=== PATIENT | male | born 1940 | race Caucasian/White ===

== ENCOUNTER 2016-08-09 13:15 | Emergency (ER) | payer MEDICARE ==
[2016-08-09 13:47] LABS: Bilirubin Negative (Negative); Blood, Urine Negative (Negative); Glucose, Urine (Dipstick) Negative (Negative); Ketone, Urine 15 mg/dL (Negative); Nitrite Positive (Negative); Protein, Urine (Dipstick) Negative (Neg-Trace); RBC/HPF 0-3 HPF (0-3)
[2016-08-09 13:48] LABS: Bacteria/HPF Rare-Few HPF (None Seen); Squamous Epithelial None Seen HPF (0-3)
[2016-08-09] MEDS ORDERED: Lidocaine 2% Jelly 5 ML TUBE ONE (13:57)
--- NOTE | 2016-08-09 14:28 | ERRECORD ---
[facility] EMERGENCY RECORD HPI URINARY RETENTION (13:30 WMEI) CHIEF COMPLAINT: Patient presents for evaluation of acute urinary retention. HISTORIAN: History provided by patient, difficulty just occ dribbling for 2 days. LOCATION: Symptoms are localized, most severe in the suprapubic region. TIME COURSE: Gradual onset of symptoms, 2, days priror to arrival, Symptoms are worsening. ASSOCIATED WITH: Associated with chills, No associated fever, No associated flank pain, No associated history of benign prostatic hyperplasia, No associated nausea, Associated with urinary tract infection signs or symptoms, dysuria. EXACERBATED BY: Patient's condition exacerbated by nothing. RELIEVED BY: Patient's condition relieved by nothing. ROS (13:36 WMEI) CONSTITUTIONAL: Historian denies fatigue, denies fever. EYES: Historian denies eye pain, denies eye discharge. ENT: Historian denies otalgia, reports rhinorrhea, denies sore throat. CARDIOVASCULAR: Historian denies chest pain, no radiation. RESPIRATORY: Historian denies cough, denies shortness of breath. GI: Historian reports abdominal pain, denies nausea, denies vomiting. suprapubic. GENITOURINARY MALE: Historian reports dysuria, reports urinary retention. MUSCULOSKELETAL: Historian denies joint redness, denies joint stiffness. SKIN: Historian denies skin changes, denies skin lesions. NEUROLOGIC: Historian denies dizziness, denies mental status changes. PSYCHIATRIC: Historian denies anxiety, denies depression. PAST MEDICAL HISTORY (13:23 CTUR) MEDICAL HISTORY: Notes: HTN, diabetes. MALE SURGICAL HISTORY: Patient has no surgical history. PSYCHIATRIC HISTORY: No previous psychiatric history, no previous emergency department psychiatric evaluations, Notes: denies. SOCIAL HISTORY: Patient drinks socially, rarely, Patient denies drug use, Patient has no smoking history. KNOWN ALLERGIES No Known Allergies CURRENT MEDICATIONS diltiazem HCl: CAPSULE, EXTENDED RELEASE : Strength - 420 mg : ORAL Patient Dose: 420 mg Oral once a day. (13:25 CTUR) losartan-hydrochlorothiazide: &a-1R&a+25V*p+0X*l6576W*c202B*c15G*c2P*p-0X&a-25V&a+1R Name: Gagandeep Catalan : 1940 M76 MedRec: [id number] AcctNum: [id number] Prepared: Merari Aug 09, 2016 14:51 by Interface Page 1 of 3 pMD [facility] EMERGENCY RECORD TABLET : Strength - 100 mg-25 mg : ORAL Patient Dose: 100-25 mg Oral once a day. (13:25 CTUR) meTOPROLOL succinate: TABLET, EXTENDED RELEASE 24 HR : Strength - 25 mg : ORAL Patient Dose: 25 mg Oral once a day. (13:26 CTUR) metFORMIN: TABLET : Strength - 850 mg : ORAL Patient Dose: 850 mg Oral once a day. (13:26 CTUR) omeprazole: TABLET, DELAYED RELEASE (ENTERIC COATED) : Strength - 20 mg : ORAL Patient Dose: 20 mg Oral once a day. (13:26 CTUR) potassium chloride: TABLET, EXTENDED RELEASE : Strength - 10 mEq : ORAL Patient Dose: 1 tab(s) Oral once a day. (13:27 CTUR) simvastatin: TABLET : Strength - 20 mg : ORAL Patient Dose: 20 mg Oral once a day. (13:28 CTUR) CoQ-10: CAPSULE : Strength - 100 mg : ORAL Patient Dose: 50 mg Oral once a day. (13:28 CTUR) VITAL SIGNS VITAL SIGNS: BP: 183/96, Pulse: 77, Resp: 18, Temp: 99.3 (Oral), Pain: 3, O2 sat: 94 on Room Air, Time: 08/09/2016 13:19. (13:19 CTUR) BP: 144/78, Pulse: 76, Resp: 16, Temp: 99.0 (Oral), Pain: 2, O2 sat: 94 on Room Air, Time: 08/09/2016 14:18. (14:18 CTUR) PHYSICAL EXAM (13:38 WMEI) CONSTITUTIONAL: Vital signs reviewed, Patient appears non toxic, Patient alert and oriented to person, place and time. HEAD: Head exam included findings of head atraumatic, normocephalic. EYES: Extraocular muscles intact, Conjunctiva normal, Sclera normal. ENT: Ear exam normal, Nose exam normal, Pharynx exam normal. NECK: Neck exam included findings of normal range of motion, Trachea midline. RESPIRATORY CHEST: Breath sounds clear, Chest exam included findings of chest movement symmetrical. CARDIOVASCULAR: Cardiovascular exam included findings of heart rate regular rate and rhythm, Heart sounds normal. ABDOMEN MALE: Abdominal exam included findings of abdomen nontender, no distension, no mass, non tender after herr inserted. GENITOURINARY MALE: Genitourinary exam included findings of penis normal. UPPER EXTREMITY: Upper extremity exam included findings of inspection normal, Range of motion normal, Motor strength normal. LOWER EXTREMITY: Lower extremity exam included findings of inspection normal, Range of motion normal, Motor strength normal, &a-1R&a+25V*p+0X*b6222C*c202B*c15G*c2P*p-0X&a-25V&a+1R Name: Gagandeep Catalan : 1940 M76 MedRec: [id number] AcctNum: [id number] Prepared: Merari Aug 09, 2016 14:51 by Interface Page 2 of 3 pMD [facility] EMERGENCY RECORD Teresa's positive. NEURO: Cori coma scale 15, Neuro exam findings include patient oriented to person, place and time, Speech normal, Gait normal. SKIN: Skin exam included findings of skin warm, dry, and normal in color. LYMPHATIC: Lymphatic exam normal. PSYCHIATRIC: Psychiatric exam included findings of patient oriented to person place and time, Normal affect, Judgment normal, Insight normal. PROBLEM LIST No recorded problems DIAGNOSIS (13:53 WMEI) FINAL: PRIMARY: urinary retention, ADDITIONAL: UTI. PRESCRIPTION (13:52 WMEI) Cipro tablet: TABLET : 500 mg : ORAL : Quantity: 1 Unit: tab(s) Route: ORAL Schedule: 2 times a day Dispense: 14 Unit: tab(s) May substitute. Refills: No Refills . NOTES: No refills. DISPOSITION PATIENT: Disposition Type: Discharge, Disposition: *Discharge Home. (13:53 WMEI) Patient left the department. (14:20 CTUR) Jackson: CTUR=BRAD Otto Christin WMEI=DO Orr William &a-1R&a+25V*p+0X*x0795F*c202B*c15G*c2P*p-0X&a-25V&a+1R Name: Gagandeep Catalan : 1940 M76 MedRec: [id number] AcctNum: [id number] Prepared: Merari Aug 09, 2016 14:51 by Interface Page 3 of 3 pMD MTDD
--- NOTE | 2016-08-09 14:34 | PICIS ---
[facility] EMERGENCY RECORD TRIAGE (WedAug 09, 2016 13:19 CTUR) TRIAGE NOTES: Pt reports having trouble urinating with the last time having regularly urinated to be on Wednesday. Reports burning and full sensation. ([place] Aug 09, 2016 13:19 CTUR) PATIENT: NAME: Gagandeep Catalan, AGE: 76, GENDER: male, : [facility] 1940, TIME OF GREET: WedAug 09, 2016 13:16, PREFERRED LANGUAGE: Albanian, ETHNICITY: Not or , ECODE BILLING MAP: [facility], SSN: [id number], Zip Code: [address], KG WEIGHT: 89.81, PHONE: , , , PERSON ID: [id number], PAYMENT: [place] [employer], PCP: MD Urbina Kyle. ([place] Aug 09, 2016 13:19 CTUR) COMPLAINT: Unable to Urinate. ([place] Aug 09, 2016 13:19 CTUR) ADMISSION: URGENCY: 3 Urgent, ADMISSION SOURCE: Home, TRANSPORT: CAR, BED: TRIAGE. ([place] Aug 09, 2016 13:19 CTUR) SIRS SCORING: Heart Rate 55-109 (0), Temp range 96.8-101.1 (0), respiratory rate 12-24 (0), Mental Status altered: no (0). (13:23 CTUR) TRIAGE SCREENING: Patient denies suicidal ideation, Patient denies presence of domestic violence. (13:23 CTUR) PROVIDERS: TRIAGE NURSE: Diandra Otto RN. ([place] Aug 09, 2016 13:19 CTUR) VITAL SIGNS: BP 183/96, Pulse 77, Resp 18, Temp 99.3, (Oral), Pain 3, O2 Sat 94, on Room Air, Time 08/09/2016 13:19. (13:19 CTUR) KNOWN ALLERGIES No Known Allergies CURRENT MEDICATIONS diltiazem HCl: CAPSULE, EXTENDED RELEASE : Strength - 420 mg : ORAL Patient Dose: 420 mg Oral once a day. (13:25 CTUR) losartan-hydrochlorothiazide: TABLET : Strength - 100 mg-25 mg : ORAL Patient Dose: 100-25 mg Oral once a day. (13:25 CTUR) meTOPROLOL succinate: TABLET, EXTENDED RELEASE 24 HR : Strength - 25 mg : ORAL Patient Dose: 25 mg Oral once a day. (13:26 CTUR) metFORMIN: TABLET : Strength - 850 mg : ORAL Patient Dose: 850 mg Oral once a day. (13:26 CTUR) omeprazole: TABLET, DELAYED RELEASE (ENTERIC COATED) : Strength - 20 mg : ORAL Patient Dose: 20 mg Oral once a day. (13:26 CTUR) potassium chloride: TABLET, EXTENDED RELEASE : Strength - 10 mEq : ORAL Patient Dose: 1 tab(s) Oral once a day. (13:27 CTUR) simvastatin: TABLET : Strength - 20 mg : ORAL Patient Dose: 20 mg Oral once a day. (13:28 CTUR) CoQ-10: &a-1R&a+25V*p+0X*x5026O*c202B*c15G*c2P*p-0X&a-25V&a+1R Name: Gagandeep Catalan : 1940 M76 MedRec: [id number] AcctNum: [id number] Prepared: Merari Aug 09, 2016 14:57 by Interface Page 1 of 5 pMD [facility] EMERGENCY RECORD CAPSULE : Strength - 100 mg : ORAL Patient Dose: 50 mg Oral once a day. (13:28 CTUR) VITAL SIGNS VITAL SIGNS: BP: 183/96, Pulse: 77, Resp: 18, Temp: 99.3 (Oral), Pain: 3, O2 sat: 94 on Room Air, Time: 08/09/2016 13:19. (13:19 CTUR) BP: 144/78, Pulse: 76, Resp: 16, Temp: 99.0 (Oral), Pain: 2, O2 sat: 94 on Room Air, Time: 08/09/2016 14:18. (14:18 CTUR) NURSING ASSESSMENT: GENITOURINARY (13:25 LGIB) CONSTITUTIONAL: Complex assessment performed, Patient arrives ambulatory, Gait steady, History obtained from patient, Patient appears, uncomfortable, Patient cooperative, Patient alert, Oriented to person, place and time, Skin warm, Skin dry, Skin normal in color, Mucous membranes pink, Mucous membranes moist, Patient is well-groomed, UNABLE TO URINATE NORMALLY SINCE WEDNESDAY. STATES THAT HE CAN ONLY GET A "TRICKLE" OUT. PAIN MALE: Onset of pain 08/07/2016, on a scale 0-10 patient rates pain as 3, Nothing has been tried to alleviate the pain. GENITOURINARY MALE: Male genitourinary assessment findings include external genitalia normal, Scrotum normal, Testicles normal, Circumcised, Associated with urinary complaints described as, retention, urgency. ABDOMEN: Abdomen assessment findings include abdomen symmetrical, Abdomen soft, Bowel sound normal, no associated nausea, no associated vomiting, no associated diarrhea. SAFETY: Side rails up, Cart/Stretcher in lowest position, Call light within reach, Hospital ID band on. NURSING PROCEDURE: DISCHARGE NOTE (14:19 CTUR) DISCHARGE: Patient discharged to home, ambulating without assistance, driving self, unaccompanied, Summary of Care printed/ provided, Transition record given to patient, Discharge instructions given to patient, Simple or moderate discharge teaching performed, by BRAD Butler and BRAD Jim, Prescriptions given and instructions on side effects given, Above person(s) verbalized understanding of discharge instructions and follow-up care, Patient treated and evaluated by physician. BELONGINGS: Belongings and valuables with patient upon arrival to the Emergency Department include:, Belongings and valuables with patient at time of discharge include:, Belongings remain with patient, Valuables remain with patient. SAFETY: Side rails up, Cart/Stretcher in lowest position, Call light within reach, Hospital ID band on. NURSING PROCEDURE: NURSE NOTES (14:20 CTUR) NURSES NOTES: Notes: Leg bag given and all information regarding home care. &a-1R&a+25V*p+0X*t5465Y*c202B*c15G*c2P*p-0X&a-25V&a+1R Name: Gagandeep Catalan : 1940 M76 MedRec: [id number] AcctNum: [id number] Prepared: Merari Aug 09, 2016 14:57 by Interface Page 2 of 5 pMD [facility] EMERGENCY RECORD NURSING PROCEDURE: URINE COLLECTION (13:32 LGIB) URINE COLLECTION MALE: Urine collection indicated for patient unable to void, Simple alex inserted, using a 16 fr pre-connected catheter, in one attempt, output amount (mL) 800, urine zoraida in color, and clear, Alex has been anchored to leg and labeled with date and time, Specimen labeled in the presence of the patient and sent to lab, Specimen obtained for culture labeled in the presence of the patient and sent to lab. ORDER DETAILS Order Name: Culture, Urine, Status: Active, Time: 13:51 08/09/2016, User: [facility], - Ordered for: DO Orr William, - Entered by: DO Orr William - Sun Aug 09, 2016 13:51, - Quantity: 1, Order Name: [facility], Status: Done, Time: 13:44 08/09/2016, User: [facility], - Ordered for: DO Orr William, - Entered by: BRAD Fitzpatrick, Teodora Gage Aug 09, 2016 13:44, - Quantity: 1, Order Name: Urinalysis with Microscopic, Status: Active, Time: 13:30 08/09/2016, User: [facility], - Ordered for: DO Orr William, - Entered by: DO Orr William - Sun Aug 09, 2016 13:30, - Quantity: 1. HPI URINARY RETENTION (13:30 WMEI) CHIEF COMPLAINT: Patient presents for evaluation of acute urinary retention. HISTORIAN: History provided by patient, difficulty just occ dribbling for 2 days. LOCATION: Symptoms are localized, most severe in the suprapubic region. TIME COURSE: Gradual onset of symptoms, 2, days priror to arrival, Symptoms are worsening. ASSOCIATED WITH: Associated with chills, No associated fever, No associated flank pain, No associated history of benign prostatic hyperplasia, No associated nausea, Associated with urinary tract infection signs or symptoms, dysuria. EXACERBATED BY: Patient's condition exacerbated by nothing. RELIEVED BY: Patient's condition relieved by nothing. ROS (13:36 WMEI) CONSTITUTIONAL: Historian denies fatigue, denies fever. EYES: Historian denies eye pain, denies eye discharge. ENT: Historian denies otalgia, reports rhinorrhea, denies sore throat. CARDIOVASCULAR: Historian denies chest pain, no radiation. RESPIRATORY: Historian denies cough, denies shortness of breath. GI: Historian reports abdominal pain, denies nausea, &a-1R&a+25V*p+0X*g0829W*c202B*c15G*c2P*p-0X&a-25V&a+1R Name: Gagandeep Catalan : 1940 M76 MedRec: [id number] AcctNum: [id number] Prepared: Merari Aug 09, 2016 14:57 by Interface Page 3 of 5 pMD [facility] EMERGENCY RECORD denies vomiting. suprapubic. GENITOURINARY MALE: Historian reports dysuria, reports urinary retention. MUSCULOSKELETAL: Historian denies joint redness, denies joint stiffness. SKIN: Historian denies skin changes, denies skin lesions. NEUROLOGIC: Historian denies dizziness, denies mental status changes. PSYCHIATRIC: Historian denies anxiety, denies depression. PAST MEDICAL HISTORY (13:23 CTUR) MEDICAL HISTORY: Notes: HTN, diabetes. MALE SURGICAL HISTORY: Patient has no surgical history. PSYCHIATRIC HISTORY: No previous psychiatric history, no previous emergency department psychiatric evaluations, Notes: denies. SOCIAL HISTORY: Patient drinks socially, rarely, Patient denies drug use, Patient has no smoking history. PHYSICAL EXAM (13:38 WMEI) CONSTITUTIONAL: Vital signs reviewed, Patient appears non toxic, Patient alert and oriented to person, place and time. HEAD: Head exam included findings of head atraumatic, normocephalic. EYES: Extraocular muscles intact, Conjunctiva normal, Sclera normal. ENT: Ear exam normal, Nose exam normal, Pharynx exam normal. NECK: Neck exam included findings of normal range of motion, Trachea midline. RESPIRATORY CHEST: Breath sounds clear, Chest exam included findings of chest movement symmetrical. CARDIOVASCULAR: Cardiovascular exam included findings of heart rate regular rate and rhythm, Heart sounds normal. ABDOMEN MALE: Abdominal exam included findings of abdomen nontender, no distension, no mass, non tender after alex inserted. GENITOURINARY MALE: Genitourinary exam included findings of penis normal. UPPER EXTREMITY: Upper extremity exam included findings of inspection normal, Range of motion normal, Motor strength normal. LOWER EXTREMITY: Lower extremity exam included findings of inspection normal, Range of motion normal, Motor strength normal, Teresa's positive. NEURO: Cori coma scale 15, Neuro exam findings include patient oriented to person, place and time, Speech normal, Gait normal. SKIN: Skin exam included findings of skin warm, dry, and normal in color. LYMPHATIC: Lymphatic exam normal. PSYCHIATRIC: Psychiatric exam included findings of patient oriented to person place and time, Normal affect, Judgment normal, &a-1R&a+25V*p+0X*x6603W*c202B*c15G*c2P*p-0X&a-25V&a+1R Name: Gagandeep Catalan : 1940 M76 MedRec: [id number] AcctNum: [id number] Prepared: Merari Aug 09, 2016 14:57 by Interface Page 4 of 5 pMD [facility] EMERGENCY RECORD Insight normal. EVENTS TRANSFER: Triage to Emergency Triage. ([place] Aug 09, 2016 13:19 CTUR) Emergency Triage to Emergency Room -02. (13:19 CTUR) Removed from Emergency Emergency Room -02. (14:20 CTUR) PROBLEM LIST No recorded problems DIAGNOSIS (13:53 WMEI) FINAL: PRIMARY: urinary retention, ADDITIONAL: UTI. DISPOSITION PATIENT: Disposition Type: Discharge, Disposition: *Discharge Home. (13:53 WMEI) Patient left the department. (14:20 CTUR) INSTRUCTION (13:56 LGIB) DISCHARGE: [facility], URINARY RETENTION, MALE. FOLLOWUP: MD Carlitos, [place], [facility], [address] [place] [address], , MD Smiley Robin, Urology, [address] [place] [address], [place] [phone], [facility], . SPECIAL: Follow-up with your PCP/Urology 2 days. PRESCRIPTION (13:52 WMEI) Cipro tablet: TABLET : 500 mg : ORAL : Quantity: 1 Unit: tab(s) Route: ORAL Schedule: 2 times a day Dispense: 14 Unit: tab(s) May substitute. Refills: No Refills . NOTES: No refills. IMAGING (14:21 CTUR) *DISCHARGE INSTRUCTIONS RECEIPT: Image captured from scanner. *SUPPLY CHARGE SHEET: Image captured from scanner. ADMIN (14:45 WMEI) DIGITAL SIGNATURE: DO Orr William. Jackson: CTUR=BRAD Otto, Diandra LGIB=BRAD Fitzpatrick, Teodora WMEI=DO Orr William &a-1R&a+25V*p+0X*q6279T*c202B*c15G*c2P*p-0X&a-25V&a+1R Name: CatalanGagandeep Keira VILLASENORB: 1940 M76 MedRec: [id number] AcctNum: [id number] Prepared: Merari Aug 09, 2016 14:57 by Interface Page 5 of 5 pMD MTDD
== END 2016-08-09 14:14 | disposition home or self-care (01) ==
LOC: BURERS 13:15
DX: N39.0 Urinary tract infection, site not specified (principal); I10 Essential (primary) hypertension; E11.9 Type 2 diabetes mellitus without complications; Z79.84 Long term (current) use of oral hypoglycemic drugs; Z79.899 Other long term (current) drug therapy
CPT/HCPCS: 51702; 81001; 87086; 99283

== ENCOUNTER 2017-11-01 13:40 | Emergency (ER) | payer MEDICARE ==
[2017-11-01] MEDS ORDERED: Nitroglycerin 0.4 MG TAB (25 Tab Bottle) ONE (13:50)
[2017-11-01] MEDS ORDERED: Heparin 5,000 UNITS/ML VIAL ONE (13:54)
== END 2017-11-01 14:15 | disposition short-term general hospital (02) ==
LOC: BURERS 13:40
DX: I21.19 ST elevation (STEMI) myocardial infarction involving other coronary artery of inferior wall (principal); I21.09 ST elevation (STEMI) myocardial infarction involving other coronary artery of anterior wall; I10 Essential (primary) hypertension; E11.9 Type 2 diabetes mellitus without complications; Z79.899 Other long term (current) drug therapy
CPT/HCPCS: 96374; 96375; G0390; J1644

== ENCOUNTER 2017-11-08 13:17 | Emergency (ER) | payer MEDICARE ==
[2017-11-08] MEDS ORDERED: Acetaminophen 325 MG TAB ONE (13:36)
[2017-11-08 13:45] LABS: #Basophils 0.1 thou/uL (0.0-0.2); #Lymphocytes 0.7 thou/uL (1.20-3.40); #Monocytes 1.2 thou/uL (0.11-0.59); #Neutrophils 10.6 thou/uL (1.40-6.50); %Eosinophils 0.3 % (0.0-10.0); %Lymphocytes 5.7 % (21.0-51.0); %Monocytes 9.5 % (0.0-10.0); %Neutrophils 83.6 % (42.0-75.0); Hemoglobin 12.5 g/dL (14.0-18.0); Mean Corpuscular HGB CONC 33.5 g/dL (32.0-36.0); Mean Corpuscular Hemoglobin 30.5 pg (27.0-31.0); Mean Corpuscular Volume 91.1 fl (80.0-94.0); Mean Platelet Volume 6.9 fL (7.4-10.4); Platelet Count 394 thou/uL (130-400); Red Blood Cell (RBC) Count 4.11 mill/uL (4.70-6.10); White Blood Cell (WBC) Count 12.6 thou/uL (4.8-10.8)
[2017-11-08 13:56] LABS: ALT (SGPT) 18 U/L (8-55); AST (SGOT) 12 U/L (5-34); Albumin 3.7 g/dL (3.4-4.8); Alkaline Phosphatase 84 U/L (40-150); Anion Gap 15 mmol/L (10-20); BUN (Urea Nitrogen) 11 mg/dL (8.4-25.7); Calc. Creatinine Clearance 0 mL/min (70-130); Calcium 9.5 mg/dL (7.8-10.44); Carbon Dioxide 29 mmol/L (23-31); Chloride 94 mmol/L (98-107); Estimated GFR-MDRD 87; Globulin 3.3 g/dL (2.4-3.5); Glucose 138 mg/dL (83-110); Lipase 7 U/L (8-78); Potassium 4.5 mmol/L (3.5-5.1); Sodium 133 mmol/L (136-145)
[2017-11-08 13:57] LABS: CKMB 1.3 ng/mL (0-6.6)
[2017-11-08 13:59] LABS: Troponin I 0.324 ng/mL (< 0.028)
[2017-11-08] MEDS ORDERED: Enoxaparin Sodium 100 MG/ML SYRINGE ONE (14:11)
[2017-11-08] MEDS ORDERED: Furosemide 40 MG/4 ML VIAL ONE (14:40)
[2017-11-08 15:25] LABS: Bilirubin Small (Negative); Blood, Urine Negative (Negative); Clarity Clear (Clear); Glucose, Urine (Dipstick) Negative (Negative); Leukocyte Negative (Negative); Nitrite Negative (Negative); Protein, Urine (Dipstick) 30 mg/dL (Neg-Trace); pH, Urine 6.5 (5.0-9.0)
[2017-11-08 15:33] LABS: Bacteria/HPF Rare-Few HPF (None Seen); Crystals/HPF None Seen HPF (Negative); Hyaline Casts/LPF NONE SEEN LPF (0-3 Hyaline); Other Casts/LPF None Seen LPF (0-3 Hyaline); Oval Fat Bodies/HPF None Seen HPF (None Seen); RBC/HPF None Seen HPF (0-3); Renal Epithelial None Seen HPF (0-3); Sperm/HPF None Seen HPF (None Seen); Squamous Epithelial None Seen HPF (0-3); Transitional Epithelial NONE SEEN HPF (0-3); Trichomonas/HPF None Seen HPF (None Seen); WBC/HPF 0-3 HPF (0-3); Yeast-All Forms None Seen HPF (None Seen)
--- NOTE | 2017-11-08 20:55 | RAD ---
AP PORTABLE CHEST: 11/08/2017 1523 HOURS COMPARISON: 11/05/2017 FINDINGS: The chest tube has been removed on the right side. There is some strip-like atelectasis in the lingu la, but no major infiltrate is seen. Some small pleural effusions are indicated but certainly no lar james than before. There are no congestive changes at the moment. Median sternotomy sutures are prese nt from prior surgery. IMPRESSION: Overall improvement in the appearance of the chest since 11/05/2017. POS: HOME
== END 2017-11-08 15:01 | disposition short-term general hospital (02) ==
LOC: BURERS 13:17
DX: R07.2 Precordial pain (principal); R50.82 Postprocedural fever; I25.2 Old myocardial infarction; Z79.899 Other long term (current) drug therapy; Z79.82 Long term (current) use of aspirin
CPT/HCPCS: 36415; 71045; 80053; 81003; 81015; 82553; 83605; 83690; 83880; 84484; 85025; 87040; 87086; 93005; 94760; 96365; 96372; 96375; J1650; J1940; J3370

== ENCOUNTER 2017-11-23 21:20 | Emergency (ER) | payer MEDICARE ==
[2017-11-23] MEDS ORDERED: Amoxicillin/Potassium Clav 875 MG TAB ONE (21:49)
[2017-11-23 22:14] LABS: #Basophils 0.1 thou/uL (0.0-0.2); #Eosinphils 0.1 thou/uL (0.0-0.7); #Lymphocytes 0.9 thou/uL (1.20-3.40); #Monocytes 0.9 thou/uL (0.11-0.59); #Neutrophils 8.2 thou/uL (1.40-6.50); %Basophils 0.5 % (0.0-1.0); %Eosinophils 1.2 % (0.0-10.0); %Lymphocytes 8.9 % (21.0-51.0); %Monocytes 8.5 % (0.0-10.0); %Neutrophils 80.8 % (42.0-75.0); Hemoglobin 9.3 g/dL (14.0-18.0); Mean Corpuscular HGB CONC 32.7 g/dL (32.0-36.0); Mean Corpuscular Hemoglobin 28.3 pg (27.0-31.0); Mean Corpuscular Volume 86.4 fl (80.0-94.0); Mean Platelet Volume 5.8 fL (7.4-10.4); Platelet Count 403 thou/uL (130-400); RBC Distribution Width 12.8 % (11.5-14.5); Red Blood Cell (RBC) Count 3.28 mill/uL (4.70-6.10); White Blood Cell (WBC) Count 10.2 thou/uL (4.8-10.8)
[2017-11-23 22:25] LABS: Anion Gap 14 mmol/L (10-20); BUN (Urea Nitrogen) 16 mg/dL (8.4-25.7); Calc. Creatinine Clearance 0 mL/min (70-130); Calcium 8.7 mg/dL (7.8-10.44); Carbon Dioxide 26 mmol/L (23-31); Chloride 97 mmol/L (98-107); Estimated GFR-MDRD Greater than 90; Glucose 152 mg/dL (83-110); Potassium 3.6 mmol/L (3.5-5.1); Sodium 133 mmol/L (136-145)
--- NOTE | 2017-11-24 07:16 | RAD ---
PORTABLE CHEST: Date: 11/23/17 An AP portable film at 2137 hours is compared with the 11/08/17 study. FINDINGS: There has been no adverse interval change. Mild cardiomegaly is about the same as before. Mild elevat ion of the right hemidiaphragm is no different. There is no sign of pleural fluid today. The little b it of lingular streaking is not much different than before. The upper lobes are clear. IMPRESSION: No acute findings. POS: HOME
--- NOTE | 2017-11-24 07:18 | RAD ---
CHEST 2 VIEWS: Date: 11/23/17 Follow-up chest film with PA and lateral views obtained. FINDINGS: Mild cardiomegaly is noted. 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 There are no lar ge effusions or infiltrates. Some lingular streaking is seen, which is either scar or atelectasis. Sl ight elevation of the right hemidiaphragm is no different than the prior films. Lateral view shows the sternum. No gross sternal abnormality appreciated. IMPRESSION: Normal appearance for postoperative chest film. POS: HOME
== END 2017-11-23 22:51 | disposition home or self-care (01) ==
LOC: BURERS 21:20
DX: T82.7XXA Infection and inflammatory reaction due to other cardiac and vascular devices, implants and grafts, initial encounter (principal); L02.213 Cutaneous abscess of chest wall; E78.5 Hyperlipidemia, unspecified; I25.2 Old myocardial infarction; I10 Essential (primary) hypertension
CPT/HCPCS: 10060; 36415; 71045; 71046; 80048; 85025; 87070; 87077; 87186; 87205

== ENCOUNTER 2020-06-10 13:54 | Emergency (ER) | payer MEDICARE ==
[2020-06-10] MEDS ORDERED: Sodium Chloride 0.9% 100 ML ONE (14:14)
[2020-06-10] MEDS ORDERED: Ibuprofen 800 MG TAB ONE (14:14)
[2020-06-10] MEDS ORDERED: Cefepime 2 GM VIAL ONE ×2 (14:14→14:15)
[2020-06-10 14:38] LABS: Bilirubin Negative (Negative); Blood, Urine Moderate (Negative); Clarity Cloudy (Clear); Glucose, Urine (Dipstick) Negative (Negative); Ketone, Urine Negative (Negative); Leukocyte Small (Negative); Nitrite Positive (Negative); Protein, Urine (Dipstick) > or equal to 300 mg/dL (Neg-Trace); Specific Gravity, Urine 1.025 (1.005-1.030); Urobilinogen 0.2 mg/dL (Less than 2); pH, Urine 5.5 (5.0-9.0)
[2020-06-10 14:39] LABS: ALT (SGPT) 15 U/L (8-55); AST (SGOT) 21 U/L (5-34); Albumin 4.1 g/dL (3.4-4.8); Alkaline Phosphatase 91 U/L (40-110); Anion Gap 21 mmol/L (10-20); BUN (Urea Nitrogen) 54 mg/dL (8.4-25.7); Bilirubin, Total 1.2 mg/dL (0.2-1.2); CK (CPK) 84 U/L (30-200); Calc. Creatinine Clearance 0 mL/min (70-130); Calcium 9.6 mg/dL (7.8-10.44); Carbon Dioxide 25 mmol/L (23-31); Chloride 91 mmol/L (98-107); Globulin 3.8 g/dL (2.4-3.5); Glucose 160 mg/dL (83-110); Potassium 3.3 mmol/L (3.5-5.1); Protein, Total 7.9 g/dL (5.8-8.1); Sodium 134 mmol/L (136-145)
[2020-06-10 14:49] LABS: Bacteria/HPF 4+ HPF (None Seen); Squamous Epithelial 0-3 HPF (0-3); WBC/HPF Greater Than 50 HPF (0-3)
[2020-06-10 15:00] LABS: CKMB 1.2 ng/mL (0-6.6)
[2020-06-10 15:08] LABS: Band 25 % (5-11); Dohle Bodies SLIGHT; Eosinophils 1 % (0-10); Lymphocytes 6 % (21-51); MDiff Complete? YES; Mean Corpuscular HGB CONC 33.6 g/dL (32.0-36.0); Mean Corpuscular Hemoglobin 30.6 pg (27.0-31.0); Mean Platelet Volume 8.7 fL (7.4-10.4); Monocytes 5 % (0-10); Neutrophil 63 % (42-75); Platelet Count 136 thou/uL (130-400); Platelet Morphology Comment Appears Adequate; RBC Distribution Width 12.3 % (11.5-14.5); Red Blood Cell (RBC) Count 4.91 mill/uL (4.70-6.10); Toxic Granulation SLIGHT; Vacuoles SLIGHT; White Blood Cell (WBC) Count 10.4 thou/uL (4.8-10.8)
--- NOTE | 2020-06-10 18:31 | RAD ---
PORTABLE CHEST: Date: 06-10-2020 An AP portable film at 1437 is compared with the 05-03-2020 study. FINDINGS: Mild cardiomegaly is no different than before. There is no vascular congestion, edema or pleural effu di. Slight elevation of the right hemidiaphragm is typical in this patient. No major infiltrates we re appreciated. IMPRESSION: No acute thoracic finding. POS: HOME
== END 2020-06-10 16:16 | disposition short-term general hospital (02) ==
LOC: BURERS 13:54
DX: A41.9 Sepsis, unspecified organism (principal); R65.20 Severe sepsis without septic shock; N17.9 Acute kidney failure, unspecified; N39.0 Urinary tract infection, site not specified; R79.89 Other specified abnormal findings of blood chemistry; I25.10 Atherosclerotic heart disease of native coronary artery without angina pectoris; E78.5 Hyperlipidemia, unspecified; E78.00 Pure hypercholesterolemia, unspecified; I10 Essential (primary) hypertension; I25.2 Old myocardial infarction; Z79.899 Other long term (current) drug therapy
CPT/HCPCS: 71045; 80053; 81003; 81015; 82550; 82553; 83605; 83880; 84484; 85025; 87040; 87077; 87149; 87186; 93005; 96365; J0692; J3490